=== PATIENT | male | born 1955 | race Caucasian/White ===

== ENCOUNTER 2022-10-09 08:55 | Outpatient (CLI) | payer MEDICARE | END 2022-10-09 08:56 | disposition home or self-care (01) | LOC: BICULT 08:55 | PROVIDERS: ATTEND General Practice | DX: Z12.2 Encounter for screening for malignant neoplasm of respiratory organs (principal); Z13.6 Encounter for screening for cardiovascular disorders; F17.211 Nicotine dependence, cigarettes, in remission | CPT/HCPCS: 71271; 76775 ==

== ENCOUNTER 2022-11-19 13:44 | Outpatient (CLI) | payer MEDICARE | END 2022-11-19 13:45 | disposition home or self-care (01) | LOC: BICRAD 13:44 | PROVIDERS: ATTEND Student in an Organized Health Care Education/Training Program | DX: M25.461 Effusion, right knee (principal) ==

== ENCOUNTER 2024-01-30 16:00 | Outpatient (CLI) | payer MEDICARE | END 2024-01-30 16:01 | disposition home or self-care (01) | LOC: SLEEPLAB 16:00 | PROVIDERS: ATTEND Student in an Organized Health Care Education/Training Program | DX: G47.33 Obstructive sleep apnea (adult) (pediatric) (principal); G47.61 Periodic limb movement disorder | CPT/HCPCS: 95810 ==

== ENCOUNTER 2025-04-23 09:31 | Outpatient (CLI) | payer OTHER | END 2025-04-23 09:32 | disposition home or self-care (01) | LOC: BICRAD 09:31 | PROVIDERS: ATTEND Student in an Organized Health Care Education/Training Program | DX: M17.31 Unilateral post-traumatic osteoarthritis, right knee (principal) ==